=== PATIENT | female | born 2000 | race Caucasian/White ===

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

== ENCOUNTER 2024-03-03 13:14 | Emergency (ER) | payer MEDICAID, OTHER ==
[~2024-03-03] VITALS: Ht 188 cm; Wt 136.1 kg
[2024-03-03 13:15] VITALS: BP_SYST 138; PULSE 70; RESP 16; TEMP 97.5; O2SAT 97
[2024-03-03] MEDS ORDERED: GENT5DRO7 LEFT EYE (13:34)
[2024-03-03 13:39] VITALS: BP_SYST 148; PULSE 70; RESP 16; TEMP 97.5; O2SAT 97
== END 2024-03-03 13:40 | disposition home or self-care (01) ==
LOC: SED 13:14
DX: T26.82XA Corrosions of other specified parts of left eye and adnexa, initial encounter (principal); Z79.2 Long term (current) use of antibiotics; Y93.G3 Activity, cooking and baking; Y92.89 Other specified places as the place of occurrence of the external cause; Y99.8 Other external cause status
CPT/HCPCS: 99283